=== PATIENT | male | born 1945 | race Caucasian/White ===

== ENCOUNTER 2017-08-12 21:34 | Observation (INO) | payer MEDICARE, BC ==
[~2017-08-12] VITALS: Ht 177.8 cm; Wt 84.0 kg
[2017-08-12 21:36] VITALS: BP 177/81; PULSE 75; RESP 20; TEMP 97.4; O2SAT 99
[2017-08-12 21:46] VITALS: BP 187/85; PULSE 69; RESP 16; O2SAT 100
[2017-08-12] MEDS ORDERED: SODIUM CHLOR 0.9% 1000 ML INJ 1,000 ML IV SCH (21:56)
[2017-08-12] MEDS ORDERED: SODIUM CHLORIDE 0.9% FLUSH 10 ML FLUSH IVF PRN (22:00)
[2017-08-12] MEDS ORDERED: ASPIRIN 81 MG CHEW TAB PO ONE (22:00)
[2017-08-12] MEDS ORDERED: ONDANSETRON HCL 4 MG/2 ML VIAL IV PUSH ONE (22:00)
--- NOTE | 2017-08-12 22:05 | PD ---
HPI Chief Complaint: Chest Pain Time Seen by Provider: 22:02 Travel History International Travel<30 days: No Contact w/Intl Traveler<30days: No Traveled to known affect area: No History of Present Illness HPI 72-year-old male presents for evaluation. He reports that prior to arrival he was sitting in the movie theater when he developed some nausea, lightheadedness , slight left-sided chest pressure, paresthesias in the nose and the fingers. He came here for further evaluation. He reports that prior to entering the movie theater he ate a rare hamburger and he thought that he may be getting food poisoning. He denies dyspnea, cough or congestion, fevers, abdominal pain , diarrhea. No personal history or family history of coronary artery disease. He denies history of hypertension, tobacco use. He does report mildly elevated cholesterol levels. He believes that he had a stress test as an outpatient 5 years ago and he believes that it was normal. His primary care physician is Dr. Moreira. No other complaints at this time. [facility] Past Medical History Medical History: Denies Significant Hx Past Surgical History Surgical History: No Previous Surgery Social History Alcohol Use: No Tobacco Use: No Substance Use: No Allergies-Medications (Allergen,Severity, Reaction): Coded Allergies: morphine (Verified Adverse Reaction, Mild, Nausea/Vomiting, 08/12/17) Reported Meds & Prescriptions Reported Meds & Active Scripts Active No Active Prescriptions or Reported Medications Review of Systems Except as stated in HPI: all other systems reviewed are Neg Physical Exam Narrative GENERAL: Well-developed well-nourished male in no acute distress resting comfortably on hospital bed vital signs reviewed SKIN: Warm and dry. HEAD: Atraumatic. Normocephalic. EYES: Pupils equal and round. No scleral icterus. No injection or drainage. ENT: No nasal bleeding or discharge. Mucous membranes pink and moist. NECK: Trachea midline. No JVD. CARDIOVASCULAR: Regular rate and rhythm. No murmur appreciated. RESPIRATORY: No accessory muscle use. Clear to auscultation. Breath sounds equal bilaterally. GASTROINTESTINAL: Abdomen soft, non-tender, nondistended. Hepatic and splenic margins not palpable. MUSCULOSKELETAL: No obvious deformities. No clubbing. No cyanosis. No edema. NEUROLOGICAL: Awake and alert. No obvious cranial nerve deficits. Motor grossly within normal limits. Normal speech. PSYCHIATRIC: Appropriate mood and affect; insight and judgment normal. Data Data Last Documented VS Vital Signs Date Time Temp Pulse Resp B/P (MAP) Pulse Ox O2 Delivery O2 Flow Rate FiO2 08/12/17 22:00 Room Air 2.00 08/12/17 21:50 69 08/12/17 21:46 16 187/85 (119) 100 08/12/17 21:36 97.4 Orders Orders Electrocardiogram (08/12/17 21:56) Basic Metabolic Panel (Bmp) (08/12/17 21:56) Ckmb (Isoenzyme) Profile (08/12/17 21:56) Complete Blood Count With Diff (08/12/17:56) Magnesium (Mg) (08/12/17:56) Prothrombin Time / Inr (Pt) (08/12/17:56) Act Partial Throm Time (Ptt) (08/12/17:56) Troponin I (08/12/17:56) Chest, Single Ap (08/12/17:56) Ecg Monitoring (08/12/17:56) Bilateral Bp Monitoring (08/12/17:56) Iv Access Insert/Monitor (08/12/17:56) Oximetry (08/12/17 21:56) Oxygen Administration (08/12/17:56) Aspirin Chew (Aspirin Chew) (08/12/17 22:00) Sodium Chloride 0.9% Flush (Ns Flush) (08/12/17 22:00) Ondansetron Inj (Zofran Inj) (08/12/17 22:00) Sodium Chlor 0.9% 1000 Ml Inj (Ns 1000 M (08/12/17 21:56) CKMB (08/12/17 22:20) CKMB% (08/12/17 22:20) Admit Order (Ed Use Only) (08/12/17 23:02) Activity Bed Rest With Brp (08/12/17 23:02) Vital Signs (Adult) Q4H (08/12/17 23:02) Cardiac Rhythm .As Directed (08/12/17 23:02) Notify Dr: Other .PRN (08/12/17 23:02) Notify Parameters (08/12/17 23:02) Resp Oxygen Nasal Cannula (08/12/17 ) Ckmb (Isoenzyme) Profile (08/13/17 01:20) Ckmb (Isoenzyme) Profile (08/13/17 04:20) Troponin I (08/13/17 01:20) Troponin I (08/13/17 04:20) Electrocardiogram (08/13/17 01:20) Electrocardiogram (08/13/17 04:20) ^ Obtain (08/12/17 23:02) Sodium Chloride 0.9% Flush (Ns Flush) (08/12/17 23:15) Sodium Chloride 0.9% Flush (Ns Flush) (08/13/17 09:00) Labs Laboratory Tests Test 08/12/17 22:20 White Blood Count 7.2 TH/MM3 Red Blood Count 5.02 MIL/MM3 Hemoglobin 14.2 GM/DL Hematocrit 42.6 % Mean Corpuscular Volume 84.8 FL Mean Corpuscular Hemoglobin 28.3 PG Mean Corpuscular Hemoglobin Concent 33.4 % Red Cell Distribution Width 13.7 % Platelet Count 237 TH/MM3 Mean Platelet Volume 8.3 FL Neutrophils (%) (Auto) 35.4 % Lymphocytes (%) (Auto) 54.1 % Monocytes (%) (Auto) 7.1 % Eosinophils (%) (Auto) 2.6 % Basophils (%) (Auto) 0.8 % Neutrophils # (Auto) 2.5 TH/MM3 Lymphocytes # (Auto) 3.9 TH/MM3 Monocytes # (Auto) 0.5 TH/MM3 Eosinophils # (Auto) 0.2 TH/MM3 Basophils # (Auto) 0.1 TH/MM3 CBC Comment DIFF FINAL Differential Comment Prothrombin Time 10.2 SEC Prothromb Time International Ratio 0.9 RATIO Activated Partial Thromboplast Time 22.9 SEC Blood Urea Nitrogen 23 MG/DL Creatinine 1.13 MG/DL Random Glucose 110 MG/DL Calcium Level 9.7 MG/DL Magnesium Level 2.0 MG/DL Sodium Level 139 MEQ/L Potassium Level 3.9 MEQ/L Chloride Level 103 MEQ/L Carbon Dioxide Level 23.3 MEQ/L Anion Gap 13 MEQ/L Estimat Glomerular Filtration Rate 64 ML/MIN Total Creatine Kinase 111 U/L Troponin I LESS THAN 0.02 NG/ML MDM Medical Decision Making Medical Screen Exam Complete: Yes Emergency Medical Condition: Yes Medical Record Reviewed: Yes Interpretation(s) EKG sinus rhythm, Q waves noted in the inferior leads. Chest x-ray mild atelectasis otherwise unremarkable CBC unremarkable Differential Diagnosis Angina, acute coronary syndrome, electrolyte abnormality, food poisoning, orthostatic hypotension, vasovagal reaction Narrative Course 72-year-old male who presents after developing slight left-sided chest pressure , nausea, lightheadedness and paresthesias prior to arrival while sitting in a movie theater. The patient will be placed on ECG monitoring and pulse oximetry. A 12-lead EKG was meal obtained. The patient was given full dose aspirin as well as Zofran, IV fluids. Basic lab work, chest x-ray have been ordered. Discussed with my attending who agrees with plan of care. The patient's initial lab work is unremarkable. EKG reveals some Q waves noted in the inferior leads. At this point in time the plan will be to admit the patient to the chest pain center for serial cardiac enzymes and rule out purposes. He is agreeable. Procedures EKG Prior to Arrival: Yes Diagnosis Primary Impression: Chest pain Additional Impressions: Lightheadedness Nausea Admitting Information Admitting Physician Requests: Observation Scripts No Active Prescriptions or Reported Meds Nikko Delcid Aug 12, 2017 22:05
--- NOTE | 2017-08-12 22:30 | RADRPT ---
EXAM DATE/TIME: 08/12/2017 22:14 [place] COMPARISON: No previous studies available for comparison. INDICATIONS : Shortness of breath, lightheaded and dizzy. MEDICAL HISTORY : None. SURGICAL HISTORY : None. ENCOUNTER: Initial ACUITY: 1 day PAIN SCORE: 0/10 LOCATION: Bilateral chest FINDINGS: A single view of the chest demonstrates the lungs to be symmetrically aerated without evidence of mas s, infiltrate or effusion. Minimal basilar atelectasis. The cardiomediastinal contours are unremarkab le. Osseous structures are intact. CONCLUSION: 1. Minimal basilar atelectasis. John Muñiz MD on August 12, 2017 at 22:28 Board Certified Radiologist. This report was verified electronically.
[2017-08-12 22:36] LABS: AUTOMATED NEUTROPHIL # 2.5 TH/MM3 (1.8-7.7); BASOPHIL # 0.1 TH/MM3 (0-0.2); BASOPHIL % 0.8 % (0.0-2.0); EOSINOPHIL # 0.2 TH/MM3 (0-0.4); EOSINOPHIL % 2.6 % (0.0-4.0); HEMATOCRIT 42.6 % (39.0-51.0); HEMO FLAGS DIFF FINAL; LYMPH % 54.1 % (9.0-44.0); LYMPHOCYTE # 3.9 TH/MM3 (1.0-4.8); MEAN CELL VOLUME 84.8 FL (80.0-100.0); MEAN CORPUSCULAR HEMOGLOBIN 28.3 PG (27.0-34.0); MEAN CORPUSCULAR HGB CONC 33.4 % (32.0-36.0); MONO % 7.1 % (0.0-8.0); NEUT % 35.4 % (16.0-70.0); PLATELET COUNT 237 TH/MM3 (150-450); RED BLOOD COUNT 5.02 MIL/MM3 (4.50-5.90); RED CELL DISTRIBUTION WIDTH 13.7 % (11.6-17.2); WHITE BLOOD COUNT 7.2 TH/MM3 (4.0-11.0)
[2017-08-12 22:45] LABS: APTT (PATIENT) 22.9 SEC (24.3-30.1); INTERNATIONAL NORMALIZED RATIO 0.9 RATIO; PROTHROMBIN TIME - PATIENT 10.2 SEC (9.8-11.6)
[2017-08-12 22:56] LABS: ANION GAP 13 MEQ/L (5-15); BICARBONATE 23.3 MEQ/L (21.0-32.0); BLOOD UREA NITROGEN 23 MG/DL (7-18); CHLORIDE 103 MEQ/L (98-107); GLOMERULAR FILTRATION RATE 64 ML/MIN (>89); POTASSIUM 3.9 MEQ/L (3.5-5.1); SODIUM (NA) 139 MEQ/L (136-145)
[2017-08-12 23:01] LABS: CREATINE KINASE 111 U/L (39-308)
[2017-08-12 23:14] LABS: CKMB 0.6 NG/ML (0.5-3.6)
[2017-08-12] MEDS ORDERED: SODIUM CHLORIDE 0.9% FLUSH 10 ML FLUSH IV FLUSH PRN (23:15)
[2017-08-13] VITALS (7 sets, daily range): BP systolic 115–145; BP diastolic 68–78; PULSE 58–76; RESP 18–20; TEMP 97.7–98.4; O2SAT 96–100
[2017-08-13 02:37] LABS: CREATINE KINASE 76 U/L (39-308)
--- NOTE | 2017-08-13 05:02 | EKG ---
Date Performed: 08/12/2017 Time Performed: 21:53:39 PTAGE: 72 years EKG: Sinus rhythm INTRAVENTRICULAR CONDUCTION DELAY PROBABLE LATERAL MYOCARDIAL INFARCTION INFERIOR MYOCARDIAL INFARCT ION ABNORMAL ECG PREVIOUS TRACING : 08/12/2017 21.46 DOCTOR: Param Son Interpretating Date/Time 08/13/2017 05:02:02
[2017-08-13 05:21] LABS: CREATINE KINASE 81 U/L (39-308)
--- NOTE | 2017-08-13 08:32 | HHI.HP ---
HPI Primary Care Physician Noemi Moreira MD Chief Complaint nausea, paresthesia fingertips and bilateral knees History of Present Illness 72-year-old male with no significant past medical history presents to emergency room for further evaluation of nausea, unsteadiness, and paresthesia fingertips and bilateral knees. Onset last evening while at a movie theater, he developed nausea. Initially thought he had food poisoning due to a medium rare hamburger recently eaten. He became concerned when thinking he would not make to bathroom to vomit, therefore he and his left the theater. Upon standing, felt "unsteady" but denying dizziness or lightheadedness. On the way home, symptoms worsened, developed "a dry mouth" and described numbness and tingling of fingers and bilateral knees. Due to progressive worse symptoms, he requested to drive him to the ER. States "my chest never concerned me" but after being questioned by ER staff states "I think maybe I had a little chest pressure on the left side but I am not certain." All symptoms have since resolved, reporting after a couple of hours he felt fine. Review of Systems General: No fatigue,weakness, fever, chills, or recent illness. Has been his general state of health. Cycles 5 miles daily. HEENT: No GIVENS, no vision changes, no nasal congestion or drainage CV: No CP, pressure, or discomfort. RESP: No SOB, cough, recent URI, or sputum production. GI: Nausea completely resolved, never vomited. No bowel changes, diarrhea, constipation, pain, or distention. History of diverticulosis, no recent problems , take Metamucil daily. : No dysuria EXT: No lower leg edema. Paraesthesias resolved quickly after arrival to ER MS: No discomfort or change in ROM. No injury, trauma, or recent fall. NEURO: No "unsteadiness" has resolved. No syncope episodes, or motor/sensory deficits PSYCH: No anxiety, depression, or situational stress Past Family Social History Allergies: Coded Allergies: morphine (Verified Adverse Reaction, Mild, Nausea/Vomiting, 08/12/17) Past Medical History Diverticulosis Past Surgical History Spinal surgery, bilateral knee and multiple toe surgeries Reported Medications Reported Meds & Active Scripts Active No Active Prescriptions or Reported Medications Active Ordered Medications Current Medications Medications (Trade) Dose Ordered Sig/Alicia Route Start Time Stop Time Status Last Admin (NS Flush) 2 ml UNSCH PRN IVF 08/12/17 22:00 (NS Flush) 2 ml UNSCH PRN IV FLUSH 08/12/17 23:15 (NS Flush) 2 ml BID IV FLUSH 08/13/17 09:00 Family History Noncontributory for early onset cardiovascular disease. Social History No known diabetes, hypertension, hyperlipidemia, or coronary artery disease. Remote smoker, smoked 2 years in late teens. Endorses 2 alcohol drinks daily. . 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 Lives active lifestyle, cycles 5 miles/daily. Past cardiac testing Remote treadmill 5 years ago, unremarkable. Physical Exam Vital Signs Vital Signs Date Time Temp Pulse Resp B/P (MAP) Pulse Ox O2 Delivery O2 Flow Rate FiO2 08/13/17 07:43 97.8 65 18 115/68 (84) 97 08/13/17 05:19 68 08/13/17 04:00 98.4 68 18 129/78 (95) 100 08/13/17 02:14 76 08/13/17 01:13 08/13/17 00:00 61 20 133/71 (91) 99 Room Air 08/13/17 00:00 96 08/12/17 22:00 Room Air 2.00 08/12/17 21:50 69 08/12/17 21:46 69 16 187/85 (119) 100 08/12/17 21:36 97.4 75 20 177/81 (113) 99 Room Air Physical Exam GENERAL: Alert WN, WD, NAD, pleasant, male who appears younger than stated age. HEAD: NC, AT EYES: Sclera clear, conjunctiva without injection ENT: Mucous membranes pink and moist NECK: Supple, no masses, trachea midline CV: RRR, without murmur, rub, gallop, no JVD, S1-S2 no S3-S4. No carotid bruits. RESP: Clear lungs throughout bilateral, no crackles, wheeze, rhonchi, symmetrical chest rise, nonlabored, able to speak in full sentences ABD: Soft, NT, ND, no masses, positive bowel tones EXT: Pulses +24, no dependent edema MS: Normal tone 4 extremities, nontender, no obvious deformities, full range of motion NEURO: CN II through CN XII grossly intact, motor strength 5/5, gait WNL PSYCH: A+O 3, pleasant affect, appropriate speech, appropriate mood and affect , insight and judgment SKIN: Normal turgor, normal texture, no lesions, no rashes, brisk cap refill, even hair distribution Laboratory Laboratory Tests Test 08/12/17 22:20 08/13/17 01:45 08/13/17 04:30 White Blood Count 7.2 Red Blood Count 5.02 Hemoglobin 14.2 Hematocrit 42.6 Mean Corpuscular Volume 84.8 Mean Corpuscular Hemoglobin 28.3 Mean Corpuscular Hemoglobin Concent 33.4 Red Cell Distribution Width 13.7 Platelet Count 237 Mean Platelet Volume 8.3 Neutrophils (%) (Auto) 35.4 Lymphocytes (%) (Auto) 54.1 Monocytes (%) (Auto) 7.1 Eosinophils (%) (Auto) 2.6 Basophils (%) (Auto) 0.8 Neutrophils # (Auto) 2.5 Lymphocytes # (Auto) 3.9 Monocytes # (Auto) 0.5 Eosinophils # (Auto) 0.2 Basophils # (Auto) 0.1 CBC Comment DIFF FINAL Differential Comment Prothrombin Time 10.2 Prothromb Time International Ratio 0.9 Activated Partial Thromboplast Time 22.9 Blood Urea Nitrogen 23 Creatinine 1.13 Random Glucose 110 Calcium Level 9.7 Magnesium Level 2.0 Sodium Level 139 Potassium Level 3.9 Chloride Level 103 Carbon Dioxide Level 23.3 Anion Gap 13 Estimat Glomerular Filtration Rate 64 Total Creatine Kinase 111 76 81 Creatine Kinase MB 0.6 Troponin I LESS THAN 0.02 LESS THAN 0.02 LESS THAN 0.02 Result Diagram: 08/12/17221908/12/172219 Imaging Last Impressions Chest X-Ray 08/12/172155 Signed Impressions: Service Date/Time: Saturday, August 12, 2017 22:14 - CONCLUSION: 1. Minimal basilar atelectasis. John Muñiz MD Course EKG Normal sinus rhythm, small Q waves inferior and laterally Caprini VTE Risk Assessment Caprini VTE Risk Assessment: Mod/High Risk (score >= 2) Caprini Risk Assessment Model Point Value = 1 Point Value = 2 Point Value = 3 Point Value = 5 Age 41-60 Minor surgery BMI > 25 kg/m2 Swollen legs Varicose veins or History of unexplained or recurrent spontaneous Oral contraceptives or hormone replacement Sepsis (< 1 month) Serious lung disease, including pneumonia (< 1 month) Abnormal pulmonary function Acute myocardial infarction Congestive heart failure (< 1 month) History of inflammatory bowel disease Medical patient at bed rest Age 61-74 Arthroscopic surgery Major open surgery (> 45 min) Laparoscopic surgery (> 45 min) Malignancy Confined to bed (> 72 hours) Immobilizing plaster cast Central venous access Age >= 75 History of VTE Family history of VTE Factor V Leiden Prothrombin [id number] Lupus anticoagulant Anticardiolipin antibodies Elevated serum homocysteine Heparin-induced thrombocytopenia Other congenital or acquired thrombophilia Stroke (< 1 month) Elective arthroplasty Hip, pelvis, or leg fracture Acute spinal cord injury (< 1 month) Prophylaxis Regimen Total Risk Factor Score Risk Level Prophylaxis Regimen 0-1 Low Early ambulation 2 Moderate Order ONE of the following: *Sequential Compression Device (SCD) *Heparin 5000 units SQ BID 3-4 Higher Order ONE of the following medications: *Heparin 5000 units SQ TID *Enoxaparin/Lovenox 40 mg SQ daily (WT < 150 kg, CrCl > 30 mL/min) *Enoxaparin/Lovenox 30 mg SQ daily (WT < 150 kg, CrCl > 10-29 mL/min) *Enoxaparin/Lovenox 30 mg SQ BID (WT < 150 kg, CrCl > 30 mL/min) AND/OR *Sequential Compression Device (SCD) 5 or more Highest Order ONE of the following medications: *Heparin 5000 units SQ TID (Preferred with Epidurals) *Enoxaparin/Lovenox 40 mg SQ daily (WT < 150 kg, CrCl > 30 mL/min) *Enoxaparin/Lovenox 30 mg SQ daily (WT < 150 kg, CrCl > 10-29 mL/min) *Enoxaparin/Lovenox 30 mg SQ BID (WT < 150 kg, CrCl > 30 mL/min) AND *Sequential Compression Device (SCD) Assessment and Plan Assessment and Plan #1 Atypical cardiac presentation-admitted to chest pain center. Ruled out with 3 sets of EKGs, cardiac enzymes, and monitored on telemetry overnight. Will be seen and evaluated by Dr. Pavel White. Discussed in length most likely next step would be to complete exercise stress test. If unremarkable, will discharge later this afternoon. #2 Vasovagal episode-discussed episode may have been a vasovagal response originating from gastrointestinal track. Follow up with PCP. Wilma Kelley Aug 13, 2017 08:32
[2017-08-13] MEDS ORDERED: SODIUM CHLORIDE 0.9% FLUSH 10 ML FLUSH IV FLUSH SCH (09:00)
--- NOTE | 2017-08-13 12:29 | TR ---
Date Performed: 08/13/2017 Time Performed: 10:15:36 DOCTOR: Pavel White DRUG LIST: CLINICAL HISTORY: CHEST PAIN REASON FOR TEST: Chest pain REASON FOR ENDING: OBSERVATION: CONCLUSION: Jose protocol completed. Stopped sec to exceeding target heart rate and leg fatigue . Maximum AE=159 % Target HR Achieved=95.0% Maximum UD=119/94 Total Exercise Time=8:04. No reprod harmeet st discomfort. No ectopy. No st changes to sugg ischemia. Variable T wave in lead III. Great exercise tolerance. Normal bp response. Recovery quick and unremarkable. COMMENTS: Conclusion: Normal treadmill exercise. No evidence of ischemia.
--- NOTE | 2017-08-13 13:03 | HHI.DCPOC ---
Discharge Care Plan Diagnosis: (1) Atypical chest pain (2) Vaso vagal episode Goals to Promote Your Health * To prevent worsening of your condition and complications * To maintain your health at the optimal level Directions to Meet Your Goals Take your medications as prescribed Follow your dietary instruction Follow activity as directed Keep your appointments as scheduled Take your immunizations and boosters as scheduled If your symptoms worsen call your PCP, if no PCP go to Urgent Care Center or Emergency Room Smoking is Dangerous to Your Health. Avoid second hand smoke Call the 24-hour hour crisis hotline for domestic abuse at Wilma Kelley Aug 13, 2017 13:03
--- NOTE | 2017-08-13 13:56 | EKG ---
Date Performed: 08/13/2017 Time Performed: 05:27:38 PTAGE: 72 years EKG: Sinus rhythm INTRAVENTRICULAR CONDUCTION DELAY ABNORMAL ECG PREVIOUS TRACING : 08/13/2017 05.27 Since previous tracing, no significant change noted DOCTOR: Pavel White Interpretating Date/Time 08/15/2017 07:18:54
--- NOTE | 2017-08-13 14:09 | EKG ---
Date Performed: 08/13/2017 Time Performed: 02:08:50 PTAGE: 72 years EKG: Sinus rhythm INTRAVENTRICULAR CONDUCTION DELAY ABNORMAL ECG PREVIOUS TRACING : 08/12/2017 21.53 Since previous tracing, no significant change noted DOCTOR: Pavel White Interpretating Date/Time 08/13/2017 14:08:25
== END 2017-08-13 14:05 | disposition home or self-care (01) ==
LOC: NEPC 21:34 → NEDA 23:03 → NEPFCDU 08-13 01:48
DX: R07.89 Other chest pain (principal); R55 Syncope and collapse; R42 Dizziness and giddiness; R11.0 Nausea; R20.2 Paresthesia of skin
CPT/HCPCS: 71010; 80048; 82550; 82552; 83735; 84484; 85025; 85610; 85730; 93005; 93017; 96374; 99285; G0378; J2405; J7030